=== PATIENT | female | born 1970 | race Caucasian/White ===

== ENCOUNTER → 2019-12-03 | Outpatient (CLI) | payer BC | LOC: COL.RAD 12:10 | DX: M47.812 Spondylosis without myelopathy or radiculopathy, cervical region (principal) ==

== ENCOUNTER 2020-03-22 07:50 | Outpatient (CLI) | payer BC ==
[2020-03-22] VITALS (7 sets, daily range): BP systolic 88–112; BP diastolic 66–78; PULSE 53–555
[~2020-03-22 07:50] MED LIST: DESYREL 50MG50 MG PO; GLUCOPHAGE500 MG/TAB PO; INDERAL80 MG PO; LEXAPRO20 MG PO; PRINIVIL20 MG PO; SINGULAIR 110 MG/TAB PO; ZANAFLEX2 MG PO
[2020-03-22 09:39] LABS: GLUCOSE,CSF 60 mg/dL (40-70); TOTAL PROTEIN,CSF 43 mg/dL (15-45)
--- NOTE | 2020-03-22 10:00 | NUR ---
Discharge instructions given to pt.Pt verbalizes understanding.Pt ambulated to bathroom.Pt escorted out via ambulatory by this nurse.
[2020-03-22 10:30] LABS: CSF APPEARANCE CLEAR; CSF COLOR COLORLESS; CSF MONONUCLEAR 92 % (70-100); CSF POLYMORPHONUCLEAR 8 % (0-6); CSF RBC 1 /mm3 (0-0)
== END 2020-03-22 12:17 | disposition home or self-care (01) ==
LOC: COL.RAD 07:50
PROVIDERS: Psychiatry & Neurology Neurology
DX: H53.9 Unspecified visual disturbance (principal)

== ENCOUNTER 2021-08-24 05:38 | Day surgery (SDC) | payer BC ==
[~2021-08-24] VITALS: Ht 162.6 cm; Wt 75.9 kg
[2021-08-24 06:07] VITALS: BP 138/80; PULSE 74; TEMP 98.2
[2021-08-24] MEDS ORDERED: TOPAMAX50 MG PO (06:13)
[2021-08-24 07:25] VITALS: BP 99/68; PULSE 63; TEMP 97.7
--- NOTE | 2021-08-24 07:25 | NUR ---
Pt arrived from endo suite drowsy but oriented. Pt ambulated from cart to chair with minimal assistance. Vitals obtained. Verbal report obtained. Pt requested a warm muffin and cranberry juice. Call antoine is within reach on bedside table. Family is present.
[2021-08-24 07:40] VITALS: BP 100/64; PULSE 61
--- NOTE | 2021-08-24 07:40 | NUR ---
Vitals obtained. Pt is tolerating her muffin and juice well. Denies nausea. No vomiting. Call antoine remains within reach.
[2021-08-24 07:55] VITALS: BP 98/71; PULSE 60
--- NOTE | 2021-08-24 07:55 | NUR ---
Vitals obtained. DC instructions and educational material reviewed with pt, who verbalized understanding and signed the realted paperwork. IV discontinued. Catheter tip intact. Pressure dressing applied. NO redness or swelling noted. Patient denied needing assistance changing into personal clothes. Call antoine remains within reach. Pt continues to deny nausea.
--- NOTE | 2021-08-24 08:07 | NUR ---
Pt dismissed from unit via wheelchair by Alena to the patient entrence. Pt has her DC packet in hand and personal belongings and was trasnferred into the care of her Shawn, who is present to drive.
== END 2021-08-24 08:10 | disposition home or self-care (01) ==
LOC: SDCO 05:38
DX: Z12.11 Encounter for screening for malignant neoplasm of colon (principal); K63.5 Polyp of colon; Z90.49 Acquired absence of other specified parts of digestive tract; Z80.0 Family history of malignant neoplasm of digestive organs
CPT/HCPCS: J2704; J7120